=== PATIENT | female | born 1995 | race Caucasian/White ===

== ENCOUNTER → 2016-04-20 16:35 | Emergency (ER) | payer OTHER ==
[~2016-04-20 16:35] MED LIST: ADULT MUCU100 MG/5 M PO; ALL DAY ALLERGY10 M2 PO; AUGMENTIN PO; BENZONATATE PO; FLEXERIL10 MG PO; FLONASE 0.05% N16 G1; IBUPROFEN800 MG PO; NAPROSYN-EC500 M1 PO; NAPROSYN250 M1 PO; ORUDIS75 M1 PO; VICODIN PO; ZITHROMAX PO
== END | disposition home or self-care (01) ==
LOC: CFTX 16:35
DX: H66.91 Otitis media, unspecified, right ear (principal); Z79.899 Other long term (current) drug therapy
CPT/HCPCS: 87651; 99282